=== PATIENT | male | born 1965 | race Two or more races ===

== ENCOUNTER → 2016-05-09 | Outpatient (CLI) | payer OTHER ==
[2016-05-12 10:40] LABS: Free Testosterone(Direct) 2.5 pg/mL (7.2-24.0)
[2016-05-12 14:41] LABS: Testosterone, Total, LC/MS 204.4 ng/dL (348.0-1197.0)
== END ==
LOC: MAY-LAB 13:30
PROVIDERS: Internal Medicine
DX: R94.7 Abnormal results of other endocrine function studies (principal)

== ENCOUNTER → 2016-09-09 | Day surgery (SDC) | payer OTHER ==
[2016-09-09 16:08] VITALS: BP 150/80
--- NOTE | 2016-09-13 15:28 | RADIOLOGY REPORT PS360 ---
US [id number] Ordering Physician: Yuan Plata MD Patient Age: 51 years: Male HISTORY: ANGINA,PCV, HHD, CAD Polycythemia evaluate for renal masses or disease. TECHNIQUE: Bilateral renal ultrasound : FINDINGS : Right kidney. 11 cm in length on my measurements. X 5.8 cm x 6.3 cm. Left kidney. 12 cm in length x6.1 cm x 6 exam. No hydronephrosis nor mass in either kidney. Both kidneys with cortex well-maintained. Kidneys Appear WNL with left slightly larger than right . If Concern regarding renal pathology persist a CT abdomen/pelvis with provide additional or sensitive study if desired to further exclude renal mass Spleen normal size Incidental Note is made probable gallstone. . IMPRESSION: 1. Kidneys within normal limits bilateral with ultrasound.. Fairly good quality study with no areas of concern nor renal mass either kidney evident 2.. Suspect Incidental gallstone near neck of gallbladder.-suggest gallbladder ultrasound follow-up
== END ==
LOC: RAD 13:00 → CATHLAB 14:23
DX: D75.1 Secondary polycythemia (principal)
CPT/HCPCS: C1894

== ENCOUNTER → 2016-09-13 | Outpatient (CLI) | payer OTHER ==
--- NOTE | 2016-09-13 18:15 | RADIOLOGY REPORT PS360 ---
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 Left atrium is mildly enlarged, left ventricle is normal size, there is mild concentric left ventricular hypertrophy present, visually estimated ejection fraction of 50% with inferobasal wall hypokinesis. 2. The right atrium and right ventricle are normal size and contractility. 3. The aortic valve is minimally thickened and calcified there is no aortic stenosis. 4. The mitral and tricuspid valve is structurally normal. 5. The pulmonic valve is not well visualized. 6. No significant pericardial effusion noted. DOPPLER INTERROGATION: Doppler interrogation of the aortic mitral and tricuspid valvular presence of mild mitral and tricuspid regurgitation. Tricuspid regurgitant jet velocity insufficient for calculation of the right ventricular systolic pressure, grade 1 diastolic dysfunction seen without tissue Doppler evidence of raised left atrial pressure. CONCLUSION: 1. Mildly enlarged left atrium, normal left ventricular size, mild concentric left ventricular hypertrophy, visually estimated ejection fraction 50% with segmental wall motion abnormality described above, grade 1 diastolic dysfunction seen without Doppler evidence of raised left atrial pressure. 2. Mild mitral and tricuspid regurgitation. 3. No significant pericardial effusion noted.
--- NOTE | 2016-09-14 14:07 | RADIOLOGY REPORT PS360 ---
History and Indications: Coronary artery disease, previous [place], hypertension, hyperlipidemia, tobacco use, family history chest pain Procedure: Patient exercised on Franki protocol 6 metastases, resting heart rate was 81 bpm resting blood pressure 149/94, with exercise maximum heart rate achieved was 1 32 bpm which is equal to 79% of the maximum predicted heart rate and a blood pressure was 180/85, test was started due to shortness of breath and leg fatigue, patient denied any complained of chest pain patient has adequate exercise capacity achieved 7mets of workload on treadmill the blood pressure response to exercise was adequate, patient did not achieve the target heart rate. Electrocardiogram: Resting electrocardiogram showed sinus rhythm anteroseptal infarct age indeterminate, with exercise occasional premature ventricular complex seen there is less than 1.[address] segment depression noted from the baseline EKG. The EKG portion of the exercise Myoview is nondiagnostic as patient did not achieve the target heart rate. Cardiac stress and resting SPECT images: Cardiac stress and the suspect images were obtained using technetium 99 Myoview 10.2 mCi at rest and 32.1 mCi at stress, gated SPECT further analysis of segmental wall motion and calculation of the ejection fraction also done. Cardiac stress and resting SPECT images show a fixed defect involving the inferior wall with normal contractility gated SPECT is secondary to soft tissue attenuation from the diaphragm, in addition there is small area reversible ischemia involving the anteroapical wall. Computer derived Ejection fraction is 58% with no obvious regional wall motion abnormality, right ventricle is normal size and contractility. Conclusion: 1. The EKG portion of the exercise Myoview is nondiagnostic as patient achieved a heart rate, patient has adequate exercise capacity achieved 7mets of workload on treadmill, the blood pressure response to exercise was adequate. There was no exercise-induced chest discomfort test was started shortness of breath. 2. Scintigraphic evidence of mild reversible ischemia involving the anteroapical wall, computer derived ejection fraction 58% with no obvious regional wall motion abnormality, right ventricle is normal size and contractility. 3. Abnormal exercise Myoview study.
== END ==
LOC: RAD 05:49
DX: I20.9 Angina pectoris, unspecified (principal); I11.9 Hypertensive heart disease without heart failure; I25.10 Atherosclerotic heart disease of native coronary artery without angina pectoris; E78.5 Hyperlipidemia, unspecified
CPT/HCPCS: A9502

== ENCOUNTER 2016-09-19 08:14 | Day surgery (SDC) | payer OTHER ==
[2016-09-19 08:44] LABS: HEMOGLOBIN 17.5 g/dL (14.1-18.0); LYMPH # 2.5 K/mm3 (0.7-4.5)
[2016-09-19 08:46] LABS: BUN 15 mg/dL (7-18); GFR (ESTIMATED) 58 ML/MIN (>60)
[2016-09-19 10:38] LABS: ARTERIAL ABE -1.6 MMOL/L (-2.4-+2.3); ARTERIAL PO2 74.9 MMHG (80-100); ARTERIAL TCO2 25.5 MMOL/L (23-27)
--- NOTE | 2016-09-19 10:52 | RADIOLOGY REPORT PS360 ---
CARDIAC CATHETERIZATION DATE OF CATHETERIZATION:09/19/2016 10:05 AM PROCEDURES: 1. Left heart catheterization 2. Left ventriculogram 3. Selective coronary angiogram 4. 240 cc therapeutic phlebotomy INDICATION FOR TEST: 1. Abnormal Myoview 2. Risk factors for coronary artery disease 3. Angina pectoris 4. Polycythemia hemoglobin 17.4 Informed consent was obtained prior to the procedure. COMPLICATIONS: None ESTIMATED BLOOD LOSS: 240 cc TECHNIQUE: One percent lidocaine was used to anesthetize the right groin. The right femoral artery was accessed via the Seldinger technique. A 4-[place] sheath was placed in the right femoral artery. Over a 3 J-wire a JL 4 JR4 catheter were used to perform left heart catheterization left ventriculogram and selective coronary angiogram. Last week patient has severe polycythemia with a hemoglobin greater than 19 g. Because of this 880 cc of whole blood was phlebotomized last week. Today patient's hemoglobin 17.4. After the diagnostic heart catheter and additional 240 cc of old blood was removed from the arterial sheath and then replaced with 2 L of normal saline. The sheath was removed and patient was transferred to the postop holding area in stable condition for sheath removal ANGIOGRAPHIC RESULTS: 1. The left main artery normal 2. The left anterior descending artery proximally has eccentric 30% stenosis with a long tubular mid vessel 40% stenosis 3. The circumflex artery is a non-dominant vessel giving rise to a small to medium first obtuse marginal artery and a larger third obtuse marginal artery 4. The right coronary artery is a dominant vessel proximally occluded and fills via left to right collaterals 5. The HUFF ventriculogram reveals normal 65% 6. The left ventricular end-diastolic pressure 10 mmHg IMPRESSION: 1. Chronically occluded proximal dominant right coronary artery with the stent left to right collaterals 2. Moderate disease in the LAD as described above 3. Normal ejection fraction 4. Normal left ventricular end-diastolic pressure PLAN: 1. I'm strongly favor medical management with complete tobacco cessation 2. LDL less than 70 3. Aggressive risk factor modification 4. Continue workup and evaluation for polycythemia. After the etiology of the polycythemia is identified should patient continue to have angina we could consider performing an FFR and stenting of the mid LAD. I suspect this probably would have a positive FFR based on its long moderate stenotic characteristic however given his polycythemia I am very hesitant to place a drug-eluting stent as he is currently hypercoagulable. If we can manage his symptoms medically that would be my overwhelming preference
[2016-09-19 13:29] VITALS: BP 165/98
== END 2016-09-19 13:25 | disposition home or self-care (01) ==
LOC: CATHLAB 08:14
PROVIDERS: Internal Medicine
PROC: B2111ZZ Fluoroscopy of Multiple Coronary Arteries using Low Osmolar Contrast (ICD-10-PCS; 2016-09-19)
PROC: B2151ZZ Fluoroscopy of Left Heart using Low Osmolar Contrast (ICD-10-PCS; 2016-09-19)
PROC: 4A023N7 Measurement of Cardiac Sampling and Pressure, Left Heart, Percutaneous Approach (ICD-10-PCS; principal; 2016-09-19 09:45)
DX: I25.119 Atherosclerotic heart disease of native coronary artery with unspecified angina pectoris (principal); R94.39 Abnormal result of other cardiovascular function study; I11.9 Hypertensive heart disease without heart failure; Z72.0 Tobacco use
CPT/HCPCS: C1725; C1769; J1644; Q9967

== ENCOUNTER → 2016-09-22 | Outpatient (CLI) | payer OTHER ==
--- NOTE | 2016-09-22 15:52 | RADIOLOGY REPORT PS360 ---
US RUQ-(ABD LTD)1ORGAN/QUAD/FU HISTORY: Pain, chest pain GALLSTONES,FATIGUE,CAD,ANGINA,ABN STRESS TEST, ORDERING PHYSICIAN: Yuan Plata MD PATIENT AGE: 51 years COMPARISON: None FINDINGS: PANCREAS:Unremarkable. No obvious mass or abnormal fluid collection. No ductal dilatation LIVER:No focal liver lesions demonstrated. Homogeneous echogenicity. No intrahepatic biliary ductal dilatation evident RIGHT KIDNEY:Unremarkable. Normal size and echogenicity. No hydronephrosis GALLBLADDER:There are gallstones. No gallbladder wall thickening, pericholecystic fluid, or biliary dilatation is evident. Common bile duct is 4 mm. IMPRESSION: Cholelithiasis.
== END ==
LOC: RAD 08:31
DX: K80.00 Calculus of gallbladder with acute cholecystitis without obstruction (principal); R53.83 Other fatigue; I25.10 Atherosclerotic heart disease of native coronary artery without angina pectoris; R94.39 Abnormal result of other cardiovascular function study; I20.9 Angina pectoris, unspecified; D75.1 Secondary polycythemia

== ENCOUNTER 2017-03-14 07:36 | Day surgery (SDC) | payer OTHER, MEDICAID ==
[2017-03-14 08:18] LABS: LYMPH # 2.7 K/mm3 (0.7-4.5); LYMPH % 22.8 % (10-50)
[2017-03-14 08:24] LABS: HEMOGLOBIN 14.6 g/dL (14.1-18.0)
[2017-03-14 08:39] LABS: BUN 19 mg/dL (7-18)
[2017-03-14 08:40] LABS: GFR (ESTIMATED) 70 ML/MIN (>60)
--- NOTE | 2017-03-14 12:22 | RADIOLOGY REPORT PS360 ---
CARDIAC CATHETERIZATION DATE OF CATHETERIZATION:03/14/2017 11:11 AM PROCEDURES: 1. Left heart catheterization 2. Left ventriculogram 3. Selective coronary angiogram 4. Drug-eluting stent deployment to the proximal mid distal LAD INDICATION FOR TEST: 1. Coronary artery disease 2. Class IV angina pectoris Informed consent was obtained prior to the procedure. COMPLICATIONS: None ESTIMATED BLOOD LOSS: Less than 10 ml. TECHNIQUE: One percent lidocaine used to anesthetize the right anterior aspect of the wrist. The right radial artery was accessed via the Seldinger technique. A 6 [place] sheath was placed in the right radial artery. 2.5 mg of verapamil, 800 mcg of nitroglycerin and 5000 U Heparin were given through the arterial sheath. The trap catheter was also used to perform left heart catheterization left ventriculogram and selective coronary angiogram. At the end the diagnostic procedure an additional 5000 units of heparin was administered intravenously giving an ACT out of range. Patient had artery taken Plavix for the day. An [place] left guide catheter was used intubate the left main artery and a BMW wire was placed distally. A 3.5 x 38 mm resolute [place] stent was deployed at 15 maximo reducing the stenosis to less than 20%. An additional 3.5 x 38 mm resolute [place] stent was deployed at 20 maximo reducing the proximal stenosis. The first stent didn't overlap with the second stent. The balloon was advanced to the 20% stenosis and deployed at 20 maximo further reducing the stenosis to less than 10%. An additional 4 mm x 15 mm resolute [place] stent was placed proximal to the second stent yet still overlapping it and deployed at 20 maximo. A 4.5 x 8 mm noncompliant balloon was deployed at 22 maximo in the proximal portion of the LAD post dilating the proximal lesion. Excellent angiographic results were obtained with SHELTON-3 flow down the vessel before and after the procedure. The procedure sheath was removed good hemostasis was achieved using TR banding transferred. Holding area in stable condition ANGIOGRAPHIC RESULTS: 1. The left main artery is normal 2. The left anterior descending artery has a proximal eccentric 40% stenosis followed by 70% stenosis immediately after the first septal shift mgr and an additional 70% long concentric stenosis distal to the second septal shift mgr. 3. The circumflex artery is a nondominant yet still large vessel and has 20% proximal stenoses with a mid vessel 20-30% eccentric stenosis. 4. The right coronary artery dominant and proximally occluded and fills via left to right collaterals 5. The HUFF ventriculogram reveals normal 65% 6. The left ventricular end-diastolic pressure 10 mmHg IMPRESSION: 1. Severe disease throughout the proximal mid distal LAD 2. Successful stenting the proximal mid distal LAD severe stenoses reduced to 0% with 3 drug-eluting stents as described above 3. Chronically occluded right coronary artery 4. Normal ejection fraction 5. Normal left ventricular end-diastolic pressure PLAN: 1. Plavix and aspirin and definitely 2. LDL less than 55 3. Avoidance of tobacco products including secondhand smoke 4. Blood pressure control 5. Control of polycythemia vera with frequent when necessary phlebotomy 6. Cardiac rehabilitation 7. Very aggressive risk factor modification
--- NOTE | 2017-03-14 12:22 | RADIOLOGY REPORT PS360 ---
CARDIAC CATHETERIZATION DATE OF CATHETERIZATION:03/14/2017 11:11 AM PROCEDURES: 1. Left heart catheterization 2. Left ventriculogram 3. Selective coronary angiogram 4. Drug-eluting stent deployment to the proximal mid distal LAD INDICATION FOR TEST: 1. Coronary artery disease 2. Class IV angina pectoris Informed consent was obtained prior to the procedure. COMPLICATIONS: None ESTIMATED BLOOD LOSS: Less than 10 ml. TECHNIQUE: One percent lidocaine used to anesthetize the right anterior aspect of the wrist. The right radial artery was accessed via the Seldinger technique. A 6 [place] sheath was placed in the right radial artery. 2.5 mg of verapamil, 800 mcg of nitroglycerin and 5000 U Heparin were given through the arterial sheath. The trap catheter was also used to perform left heart catheterization left ventriculogram and selective coronary angiogram. At the end the diagnostic procedure an additional 5000 units of heparin was administered intravenously giving an ACT out of range. Patient had artery taken Plavix for the day. An [place] left guide catheter was used intubate the left main artery and a BMW wire was placed distally. A 3.5 x 38 mm resolute [place] stent was deployed at 15 maximo reducing the stenosis to less than 20%. An additional 3.5 x 38 mm resolute [place] stent was deployed at 20 maximo reducing the proximal stenosis. The first stent didn't overlap with the second stent. The balloon was advanced to the 20% stenosis and deployed at 20 maximo further reducing the stenosis to less than 10%. An additional 4 mm x 15 mm resolute [place] stent was placed proximal to the second stent yet still overlapping it and deployed at 20 maximo. A 4.5 x 8 mm noncompliant balloon was deployed at 22 maximo in the proximal portion of the LAD post dilating the proximal lesion. Excellent angiographic results were obtained with SHELTON-3 flow down the vessel before and after the procedure. The procedure sheath was removed good hemostasis was achieved using TR banding transferred. Holding area in stable condition ANGIOGRAPHIC RESULTS: 1. The left main artery is normal 2. The left anterior descending artery has a proximal eccentric 40% stenosis followed by 70% stenosis immediately after the first septal pcmh specialist and an additional 70% long concentric stenosis distal to the second septal pcmh specialist. 3. The circumflex artery is a nondominant yet still large vessel and has 20% proximal stenoses with a mid vessel 20-30% eccentric stenosis. 4. The right coronary artery dominant and proximally occluded and fills via left to right collaterals 5. The HUFF ventriculogram reveals normal 65% 6. The left ventricular end-diastolic pressure 10 mmHg IMPRESSION: 1. Severe disease throughout the proximal mid distal LAD 2. Successful stenting the proximal mid distal LAD severe stenoses reduced to 0% with 3 drug-eluting stents as described above 3. Chronically occluded right coronary artery 4. Normal ejection fraction 5. Normal left ventricular end-diastolic pressure PLAN: 1. Plavix and aspirin and definitely 2. LDL less than 55 3. Avoidance of tobacco products including secondhand smoke 4. Blood pressure control 5. Control of polycythemia vera with frequent when necessary phlebotomy 6. Cardiac rehabilitation 7. Very aggressive risk factor modification
[2017-03-14 15:50] VITALS: BP 131/78
== END 2017-03-14 15:58 | disposition home or self-care (01) ==
LOC: CATHLAB 07:36
PROVIDERS: Internal Medicine
PROC: B2111ZZ Fluoroscopy of Multiple Coronary Arteries using Low Osmolar Contrast (ICD-10-PCS; 2017-03-14)
PROC: B2151ZZ Fluoroscopy of Left Heart using Low Osmolar Contrast (ICD-10-PCS; 2017-03-14)
PROC: 027034Z Dilation of Coronary Artery, One Artery with Drug-eluting Intraluminal Device, Percutaneous Approach (ICD-10-PCS; 2017-03-14)
PROC: 4A023N7 Measurement of Cardiac Sampling and Pressure, Left Heart, Percutaneous Approach (ICD-10-PCS; principal; 2017-03-14 12:15)
DX: I25.119 Atherosclerotic heart disease of native coronary artery with unspecified angina pectoris (principal)
CPT/HCPCS: C1725; C1769; C1876; J1644; Q9967